=== PATIENT | female | born 2000 | race Caucasian/White ===

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

== ENCOUNTER 2021-03-02 10:50 | Emergency (ER) | payer OTHER ==
[2021-03-02 11:11] VITALS: RESP 18
[2021-03-02] MEDS ORDERED: KETOROLAC 15 MG/ML 1 ML VIAL IVP STA (11:38)
--- NOTE | 2021-03-02 12:00 | ED ---
Chest Pain HPI - General Chief Complaint: Chest Pain Stated Complaint: chest pain Time Seen by Provider: 03/02/21 11:26 Source: patient, RN notes reviewed Mode of arrival: ambulatory Limitations: no limitations - History of Present Illness Initial Comments: This a 20-year-old female presents emergency Department chief complaint of chest states pain started last couple days. She states that does come and go states worse with deep inspiration but denies any shortness of breath. Denies fevers or chills. Denies any leg pain, leg swelling no abdominal complaints going states that she had some epigastric discomfort which was making her symptoms worse. Patient has no prior cardiac lung disease no prior abdominal surgery denies chance . - Related Data Home Medications Medication Instructions Recorded Confirmed Loratadine [Claritin] 10 mg PO DAILY 05/07/17 05/07/17 Sulfamethox-Tmp 800-160Mg [Bactrim 1 tab PO Q12HR 05/07/17 05/07/17 DS 800-160 mg] Allergies Allergy/AdvReac Type Severity Reaction Status Date / Time No Known Allergies Allergy Verified 03/02/21 11:11 Review of Systems ROS Statement: Those systems with pertinent positive or pertinent negative responses have been documented in the HPI. ROS Other: All systems not noted in ROS Statement are negative. EKG Findings - EKG Comments: EKG Findings:: EKG performed at 11:04 normal sinus rhythm rate of 68 MN 140 QRS 84 QT/QTC 42/427 Past Medical History Past Medical History: No Reported History History of Any Multi-Drug Resistant Organisms: None Reported Past Surgical History: No Surgical Hx Reported Past Psychological History: No Psychological Hx Reported Past Alcohol Use History: Occasional Past Drug Use History: None Reported General Exam General appearance: alert, in no apparent distress Head exam: Present: atraumatic, normocephalic, normal inspection Neck exam: Present: normal inspection, full ROM. Absent: tenderness, meningismus, lymphadenopathy Respiratory exam: Present: normal lung sounds bilaterally, chest wall tenderness (Mild chest wall tenderness). Absent: respiratory distress, wheezes, rales, rhonchi, stridor Cardiovascular Exam: Present: regular rate, normal rhythm, normal heart sounds. Absent: systolic murmur, diastolic murmur, rubs, gallop, clicks GI/Abdominal exam: Present: soft, tenderness (Epigastric), normal bowel sounds. Absent: distended, guarding, rebound, rigid Back exam: Absent: CVA tenderness (R), CVA tenderness (L) Neurological exam: Present: alert Skin exam: Present: warm, dry, intact, normal color. Absent: rash Course Vital Signs 03/02/21 11:08 Temperature 98.2 F Pulse Rate 63 Respiratory 18 Rate Blood Pressure 109/64 O2 Sat by Pulse 99 Oximetry Chest Pain MDM - MDM 20-year-old female presented for chest discomfort. Patient symptoms are reproducible she does feel improved at this time after Toradol. Labs were reviewed no stiff EMS today. Disposition Clinical Impression: Chest wall pain Disposition: HOME SELF-CARE Condition: Stable Instructions (If sedation given, give patient instructions): Chest Pain (ED) Additional Instructions: Please return to the Emergency Department if symptoms worsen or any other concerns. Is patient prescribed a controlled substance at d/c from ED?: No Referrals: Carlos Quezada DO [Primary Care Provider] - 1-2 days Time of Disposition: 13:08
[2021-03-02 12:09] LABS: Basophils % (A) 1 %; Eosinophils % (A) 1 %; HCT 33.4 % (34.0-46.0); HGB 11.8 gm/dL (11.4-16.0); Lymphocytes # (A) 0.9 k/uL (1.0-4.8); Lymphocytes % (A) 23 %; MCH 27.7 pg (25.0-35.0); MCHC 35.4 g/dL (31.0-37.0); MCV 78.2 fL (80.0-100.0); Mean Platelet Volume 7.5; Monocytes # (A) 0.3 k/uL (0-1.0); Monocytes % (A) 8 %; Neutrophils # (A) 2.6 k/uL (1.3-7.7); Neutrophils % (A) 64 %; Platelet Count 189 k/uL (150-450); RBC 4.27 m/uL (3.80-5.40); RDW 15.1 % (11.5-15.5); WBC 4.1 k/uL (4.0-11.0)
[2021-03-02 12:21] LABS: ALT 14 U/L (4-34); AST 22 U/L (14-36); African American GFR (CKD) >90 (>60 ml/min/1.73 sqM); Alkaline Phosphatase 54 U/L (38-126); Anion Gap 8 mmol/L; Blood Urea Nitrogen 12 mg/dL (7-17); Calcium 9.2 mg/dL (8.4-10.2); Carbon Dioxide 20 mmol/L (22-30); Chloride 106 mmol/L (98-107); Glucose 99 mg/dL (74-99); Lipase 33 U/L (23-300); Non-African American GFR(CKD) >90 (>60 ml/min/1.73 sqM); Potassium 3.7 mmol/L (3.5-5.1); Sodium 134 mmol/L (137-145); Total Bilirubin 0.2 mg/dL (0.2-1.3); Total Protein 6.5 g/dL (6.3-8.2)
--- NOTE | 2021-03-02 12:53 | XR ---
EXAMINATION TYPE: XR chest 2V DATE OF EXAM: 03/02/2021 COMPARISON: None HISTORY: 20-year-old female with chest pain TECHNIQUE: PA and lateral views FINDINGS: The cardiomediastinal silhouette, aorta, and pulmonary vasculature are within normal limits. Lungs an d pleural spaces are clear. IMPRESSION: No acute cardiopulmonary process.
[2021-03-02 13:38] VITALS: BP 108/55; PULSE 67; TEMP 98
== END 2021-03-02 13:38 | disposition home or self-care (01) ==
LOC: EC 10:50
DX: R07.89 Other chest pain (principal)
CPT/HCPCS: 36415; 80053; 83690; 84484; 85025; 71046; 99285; J1885; 93005